=== PATIENT | female | born 1995 | race Hispanic/Latino ===

== ENCOUNTER 2018-01-19 22:46 | Emergency (ER) | payer OTHER ==
[~2018-01-19] VITALS: Ht 154.9 cm; Wt 44.5 kg
[~2018-01-19 22:46] MED LIST: PERCOCET 5-3251 EACH PO; ZOFRAN ODT4 M1 PO
[2018-01-19 22:53] VITALS: BP 111/72
[2018-01-21] MEDS ORDERED: KEFLEX500 M1 PO (00:25)
[2018-01-21] MEDS ORDERED: IBUPROFEN600 M1 PO (00:25)
[2018-01-21] MEDS ORDERED: BACTRIM DS TAB1 EACH PO (00:25)
== END 2018-01-20 01:14 | disposition admitted as inpatient to this hospital (09) ==
LOC: ERH 22:46
DX: R51 Headache (principal); R11.0 Nausea; R42 Dizziness and giddiness; R22.9 Localized swelling, mass and lump, unspecified
CPT/HCPCS: 81003; 81025; 99281